=== PATIENT | male | born 1995 | race Caucasian/White ===

== ENCOUNTER → 2020-06-17 | Day surgery (SDC) | payer BC ==
[2020-06-15 09:42] VITALS: BMI 30.1
[~2020-06-17] MED LIST: SODIUM CHLORIDE 0.9% 1,000 ML IV SCH; SODIUM CHLORIDE 0.9% 500 ML 500 ML IV ONE
[2020-06-17 08:13] VITALS: RESP 16; TEMP 98.2
[2020-06-17 10:15] VITALS: BP 121/79; PULSE 109
--- NOTE | 2020-06-17 11:52 | P.EPPROC ---
- EP Procedure Note Electrophysiology Procedure Note: Twelve-lead ECG diagnosis Recurrent syncope Twelve-lead ECG shows sinus tachycardia 140 beats a minute normal cardiac intervals normal QT interval No delta waves no epsilon waves normal ST segments in the precordial leads normal QT interval Tilt table test protocol Baseline blood pressure 146/84 mmHg Baseline heart rate 115 beats a minute Patient was tilted upright at an angle of 70 per protocol no significant change in blood pressure Heart rate increased into the 140s the patient felt palpitations intermittently no arrhythmias noted When he was the supine his heart rate returned back into the low 80s Impression Possible orthostatic intolerance Sinus tachycardia at baseline 12-lead ECG
== END ==
LOC: CATHEP 07:51
PROVIDERS: ATTEND Internal Medicine Clinical Cardiac Electrophysiology
DX: R55 Syncope and collapse (principal); R00.0 Tachycardia, unspecified; Z82.49 Family history of ischemic heart disease and other diseases of the circulatory system; Z88.2 Allergy status to sulfonamides
CPT/HCPCS: 93660

== ENCOUNTER → 2022-06-19 | Outpatient (CLI) | payer BC ==
--- NOTE | 2022-06-28 10:10 | HM ---
HOLTER MONITOR REPORT SEVENTY TWO-HOUR HOLTER REPORT: The patient in the diary indicated several activities. He also had some very nondescript symptoms of some chest tightness and pressure and left arm pressure. Predominant rhythm appears to be sinus and the average heart rate is 78 beats per minute with variation from 49 to 152 beats per minute. There was no evidence of any significant tachy or bradyarrhythmias. Rare isolated PACs and PVCs were noted. This is an unremarkable 72-hour Holter recording. FINAL IMPRESSION: Predominant rhythm is sinus with average heart rate of 78 beats per minute. Rare isolated PVCs. No significant bradyarrhythmias. Sinus tachycardia was noted at 5:20 p.m. on 06/21/2022. Overall, this is an unremarkable _72 hour____ Holter with sinus rhythm and sinus tachycardia. MMODL / IJN: [id number] / MTDD
== END | disposition home or self-care (01) ==
LOC: RADECHMAIN 07:19
PROVIDERS: ATTEND Family Medicine
DX: R00.0 Tachycardia, unspecified (principal)
CPT/HCPCS: 93225; 93226